=== PATIENT | female | born 1965 | race African-American/Black ===

== ENCOUNTER 2017-08-18 00:08 | Emergency (ER) | payer OTHER ==
[2017-08-18 00:22] VITALS: TEMP 97.8; BMI 25.7
--- NOTE | 2017-08-18 01:14 | PDOC ---
Attending Attestation - Resident Resident Name: Lev Mcfarland - ED Attending Attestation I have performed the following: I have examined & evaluated the patient, The case was reviewed & discussed with the resident, I agree w/resident's findings & plan - HPI HPI: 08/18/17 03:38 Pt choked on a sausage. Spit up some of it at home; drank warm water to push it eric; choked on that and spit up more sausage. [place] a FB in throat and came to the ER. Here she vomited the rest of the sausage out. - Physicial Exam PE: 08/18/17 05:13 Agree with resident exam. - Medical Decision Making 08/18/17 03:33 Patient Name: APRIL TEE THIS IS A PRELIMINARY REPORT FROM [facility] DATE OF SERVICE: 2017-08-18 02:15:47 IMAGES: [id number] EXAM: CT SOFT TISSUE NECK WITHOUT CONTRAST HISTORY: Choked on sausage COMPARISON: None. FINDINGS: Intraorbital and visualized intracranial contents are normal. Normal epiglottis and vocal cords. No parapharyngeal or retropharyngeal space edema. No esophageal or tracheal foreign bodies identified. No mass or abscess. Normal salivary glands and thyroid gland. Lungs are clear. There are moderate degenerative changes of the cervical spine. IMPRESSION: No acute abnormalities identified 08/18/17 05:11 Pt has swelling at the level of the eppiglottis. Images discussed with imaging sr technical sales consultant, they agree that perhaps there may be some swelling in the area. Pt will be signed out to the day team and ENT can be called to scope the patient. Labs pending. 08/18/17 06:40 Labs normal. Pt will be signed out to the day team.
--- NOTE | 2017-08-18 01:28 | PDOC ---
History of Present Illness - General Chief Complaint: Sore Throat Stated Complaint: THROAT PAIN Time Seen by Provider: 08/18/17 00:52 - History of Present Illness Initial Comments: 08/18/17 01:18 Pt is a 52 y/o F with PMH Asthma, NIDDM on metformin who presents to the ED approximately 2-3 hours after an episode in which she had food stuck in her throat. Pt states she was eating sausage when a piece became lodged in her throat. She vomited 2-3 times over a period of 5 min before expelling the pieces. During the episode, pt states she felt like her throat was closing and she had trouble breathing. Pt has had recurrent bouts of NBNB vomiting (3-4 times) since the episode. Pt is able to swallow and is breathing freely at this time, though she has a persistent feeling of something in her throat. Past History - Past Medical History Allergies/Adverse Reactions: Allergies Allergy/AdvReac Type Severity Reaction Status Date / Time Penicillins Allergy Verified 08/18/17 01:23 - Suicide/Smoking/Psychosocial Hx Smoking History: Unknown if ever smoked Information on smoking cessation initiated: No Hx Alcohol Use: No Drug/Substance Use Hx: No Review of Systems - Review of Systems Able to Perform ROS?: Yes Is the patient limited Yi proficient: No Constitutional: Yes: Symptoms Reported. No: Chills, Diaphoresis, Fever HEENTM: Yes: Symptoms Reported. No: Eye Pain, Blurred Vision Respiratory: Yes: Symptoms reported. No: Cough, Orthopnea, Shortness of Breath Cardiac (ROS): Yes: Symptoms Reported. No: Chest Pain, Edema, Chest Tightness ABD/GI: Yes: Symptoms Reported, See HPI, Difficulty Swallowing, Nausea, Vomiting. No: Indigestion : Yes: Symptoms Reported. No: Burning, Dysuria, Discharge Musculoskeletal: Yes: Symptoms Reported. No: Back Pain *Physical Exam - Vital Signs Last Vital Signs Temp Pulse Resp BP Pulse Ox 97.8 F 82 16 145/71 100 08/18/17 00:13 08/18/17 00:13 08/18/17 00:13 08/18/17 00:13 08/18/17 00:13 - Physical Exam General Appearance: Yes: Nourished, Appropriately Dressed. No: Apparent Distress HEENT: positive: EOMI, JOE, Muffled/Hoarse voice. negative: Normal ENT Inspection, Pharynx Normal (swollen pharynx. Uvula resting on tongue) Neck: positive: Supple. negative: Tender, Stridor Respiratory/Chest: positive: Normal Breath Sounds. negative: Chest Tender, Lungs Clear Cardiovascular: positive: Regular Rhythm, Regular Rate, S1, S2 Vascular Pulses: Dorsalis-Pedis (R): 2+, Doralis-Pedis (L): 2+ Gastrointestinal/Abdominal: positive: Normal Bowel Sounds, Flat, Soft. negative : Tender, Organomegaly Musculoskeletal: positive: Normal Inspection. negative: CVA Tenderness Neurologic: positive: carbon electrodes supervisor II-XII NML intact, Fully Oriented, Alert, Normal Mood/ Affect ED Treatment Course - LABORATORY CBC & Chemistry Diagram: 08/18/17 03:40 08/18/17 03:40 Medical Decision Making - Medical Decision Making 08/18/17 01:34 Pt is a 52 y/o F w/ PMH Asthma, NIDDM who present to ED several hours after an episode in which she had soft food stuck in her throat persistently for 5 min. Pt was able to expel the food, but has residual symptoms of altered voice, vomiting, and throat swelling. Plan -CT neck soft tissue 08/18/17 04:05 CT appears abnormal. Possible tracheal narrowing, ?gas in soft tissue. Possible infectious etiolgoy. Will confirm with radiology. Pt may need ENT consult. 08/18/17 05:39 Pt sleeping comfortably 08/18/17 06:41 Labs unremarkable. *DC/Admit/Observation/Transfer - Discharge Dispostion Condition at time of disposition: Guarded - Referrals - Patient Instructions - Post Discharge Activity
[2017-08-18 04:03] LABS: BASO % 0.7 % (0-2.0); HEMOGLOBIN 13.4 GM/dL (10.7-15.3); MCH 29.5 pg (25.7-33.7); MCHC 33.4 g/dl (32.0-36.0); MEAN CELL VOLUME 88.4 fl (80-96); MEAN PLT VOLUME 9.4 fl (7.5-11.1); MONO % 6.2 % (3.8-10.2); NEUT % 53.1 % (42.8-82.8); PLATELET COUNT 233 K/MM3 (134-434); RBC 4.52 M/mm3 (3.60-5.2); RDW 12.3 % (11.6-15.6); WHITE BLOOD COUNT 9.3 K/mm3 (4.0-10.0)
[2017-08-18 05:04] LABS: BLOOD UREA NITROGEN 14 mg/dL (7-18); CREATININE 0.8 mg/dL (0.55-1.02); GLUCOSE,RANDOM 237 mg/dL (74-106); SODIUM 137 mmol/L (136-145)
[2017-08-18 05:05] LABS: ALBUMIN 3.4 g/dl (3.4-5.0); ALK PHOS 94 U/L (45-117); ANION GAP 8 (8-16); BILIRUBIN,TOTAL 0.5 mg/dL (0.2-1.0); CALCIUM 8.6 mg/dL (8.5-10.1); CHLORIDE 99 mmol/L (98-107); CO2 30 mmol/L (21-32); POTASSIUM 3.8 mmol/L (3.5-5.1); SGOT/AST 14 U/L (15-37); SGPT/ALT 18 U/L (12-78)
--- NOTE | 2017-08-18 09:23 | HP ---
CHIEF COMPLAINT: dysphagia HISTORY OF PRESENT ILLNESS: 52F with hx of asthma and NIDDM (on metformin and glyburide), who presents to the ED approximately 2-3 hours after an episode in which she had food stuck in her throat. Pt states she was eating sausage when a piece became lodged in her throat. She vomited 2-3 times over a period of 5 min before expelling the pieces. During the episode, pt states she felt like her throat was closing and she had trouble breathing. Pt has had recurrent bouts of NBNB vomiting (3-4 times) since the episode, which ejected the remainder of the sausage. Pt is able to swallow and is breathing freely at this time, though she has a persistent feeling of something in her throat. She denies any other episodes of dysphagia before, ever having this type of sausage before, any other food allergies, headache, chest pain, abdominal pain, diarrhea, constipation, and dysuria. ER course was notable for: (1) CT findings Recent Travel: denies PAST MEDICAL HISTORY: asthma and NIDDM PAST SURGICAL HISTORY: denies Social History: Smoking: denies Alcohol: denies Drugs: denies Family History: non-contributory Allergies Penicillins Allergy (Verified 08/18/17 01:23) HOME MEDICATIONS: Home Medications Medication Instructions Recorded Aspirin [ASA -] 81 mg PO DAILY 08/18/17 Glyburide 5 mg PO QID 08/18/17 Metformin HCl [Metformin HCl ER] 1,000 mg PO BID 08/18/17 REVIEW OF SYSTEMS CONSTITUTIONAL: Absent: fever, chills, diaphoresis, generalized weakness, malaise, loss of appetite, weight change HEENT: Absent: rhinorrhea, nasal congestion, mouth swelling, ear pain, eye pain, visual changes present: throat swelling, difficulty swallowing CARDIOVASCULAR: Absent: chest pain, syncope, palpitations, irregular heart rate, lightheadedness , peripheral edema RESPIRATORY: Absent: cough, dyspnea with exertion, orthopnea, wheezing, stridor, hemoptysis present: SOB GASTROINTESTINAL: Absent: abdominal pain, abdominal distension, diarrhea, constipation, melena, hematochezia present: nausea, emesis GENITOURINARY: Absent: dysuria, frequency, urgency, hesitancy, hematuria, flank pain, genital pain MUSCULOSKELETAL: Absent: myalgia, arthralgia, joint swelling, back pain, neck pain SKIN: Absent: rash, itching, pallor HEMATOLOGIC/IMMUNOLOGIC: Absent: easy bleeding, easy bruising, lymphadenopathy, frequent infections ENDOCRINE: Absent: unexplained weight gain, unexplained weight loss, heat intolerance, cold intolerance NEUROLOGIC: Absent: headache, focal weakness or paresthesias, dizziness, unsteady gait, seizure, mental status changes, bladder or bowel incontinence PSYCHIATRIC: Absent: anxiety, depression, suicidal or homicidal ideation, hallucinations. PHYSICAL EXAMINATION Vital Signs - 24 hr 08/18/17 08/18/17 00:08 00:13 Temperature 97.8 F Pulse Rate 82 Pulse Rate [ 98 H Left Radial] Respiratory 18 16 Rate Blood Pressure 145/71 Blood Pressure 136/84 [Left Arm] O2 Sat by Pulse 98 100 Oximetry (%) GENERAL: Awake, alert, and fully oriented, in no acute distress. HEENT: no pharyngeal erthema, no tongue, uvula or tonsillary swelling NECK: Normal range of motion, supple without lymphadenopathy, JVD, or masses. LUNGS: Breath sounds equal, clear to auscultation bilaterally. No wheezes, and no crackles. No accessory muscle use. HEART: Regular rate and rhythm, normal S1 and S2 without murmur, rub or gallop. ABDOMEN: Soft, nontender, not distended, normoactive bowel sounds, no guarding, no rebound, no masses. No hepatomegaly or splenomegaly. MUSCULOSKELETAL: Normal range of motion at all joints. No bony deformities or tenderness. No CVA tenderness. UPPER EXTREMITIES: 2+ pulses, warm, well-perfused. No cyanosis. No clubbing. No peripheral edema. LOWER EXTREMITIES: 2+ pulses, warm, well-perfused. No calf tenderness. No peripheral edema. NEUROLOGICAL: Cranial nerves II-XII intact. Normal speech. Normal gait. Laboratory Results - last 24 hr 08/18/17 08/18/17 03:40 03:40 WBC 9.3 RBC 4.52 Hgb 13.4 Hct 40.0 MCV 88.4 MCH 29.5 MCHC 33.4 RDW 12.3 Plt Count 233 MPV 9.4 Neutrophils % 53.1 Lymphocytes % 39.0 Monocytes % 6.2 Eosinophils % 1.0 Basophils % 0.7 Sodium 137 Potassium 3.8 Chloride 99 Carbon Dioxide 30 Anion Gap 8 BUN 14 Creatinine 0.8 Creat Clearance w eGFR > 60 Random Glucose 237 H Calcium 8.6 Total Bilirubin 0.5 AST 14 L ALT 18 Alkaline Phosphatase 94 Total Protein 7.0 Albumin 3.4 THIS IS A PRELIMINARY REPORT FROM [facility] NURSE DATE OF SERVICE: 2017-08-18 02:15:47 IMAGES: 294 EXAM: CT SOFT TISSUE NECK WITHOUT CONTRAST HISTORY: Choked on sausage COMPARISON: None. FINDINGS: Intraorbital and visualized intracranial contents are normal. Normal epiglottis and vocal cords. No parapharyngeal or retropharyngeal space edema. No esophageal or tracheal foreign bodies identified. No mass or abscess. Normal salivary glands and thyroid gland. Lungs are clear. There are moderate degenerative changes of the cervical spine. IMPRESSION: No acute abnormalities identified ASSESSMENT/PLAN: 52F with hx of asthma and NIDDM (on metformin and glyburide) who presents after acute episode of dysphagia after eating sausage accompanied by emesis and SOB. #dysphagia- likely 2/2 to eating too large of a piece of sausage -resolved after several episodes of emesis which ejected sausage out of mouth -per ED note, there is some concerning epiglottis swelling that was discussed with radiology -ENT consult, Dr. Naidu, f/u recs -NPO pending ENT recs -NS @ 100cc/hr #asthma- inactive -no current SOB or wheezing, satting well on RA #NIDDM -ISS -BGM TIDAC #FEN/ppx -NS @ 100cc/hr -electrolytes wnl -NPO for now -no GI ppx indicated -SCDs Case discussed with attending, Dr. Andrade. -Venkat Thornton MD PGY1 Visit type - Emergency Visit Emergency Visit: Yes Care time: The patient presented to the Emergency Department on the above date and was hospitalized for further evaluation of their emergent condition. - New Patient This patient is new to me today: Yes Date on this admission: 08/18/17 - Critical Care Critical Care patient: No
[2017-08-18 09:25] VITALS: BP 116/67; PULSE 84
[2017-08-18] MEDS ORDERED: SODIUM CHLORIDE 1,000 ML IV SCH (09:45)
--- NOTE | 2017-08-18 09:51 | PDOC ---
*Physical Exam - Vital Signs Last Vital Signs Temp Pulse Resp BP Pulse Ox 97.8 F 84 16 116/67 98 08/18/17 00:13 08/18/17 09:00 08/18/17 00:13 08/18/17 09:00 08/18/17 09:00 ED Treatment Course - LABORATORY CBC & Chemistry Diagram: 08/18/17 03:40 08/18/17 03:40 - ADDITIONAL ORDERS Additional order review: Laboratory Results 08/18/17 03:40 Sodium 137 Potassium 3.8 Chloride 99 Carbon Dioxide 30 Anion Gap 8 BUN 14 Creatinine 0.8 Creat Clearance w eGFR > 60 Random Glucose 237 H Calcium 8.6 Total Bilirubin 0.5 AST 14 L ALT 18 Alkaline Phosphatase 94 Total Protein 7.0 Albumin 3.4 08/18/17 03:40 RBC 4.52 MCV 88.4 MCHC 33.4 RDW 12.3 MPV 9.4 Neutrophils % 53.1 Lymphocytes % 39.0 Monocytes % 6.2 Eosinophils % 1.0 Basophils % 0.7 Medical Decision Making - Medical Decision Making 08/18/17 09:[address] tissue neck [address]: There may be minimal parapharyngeal space edema at and just above the level of the vocal cords. Intraorbital and visualized contents are normal. No esophageal or tracheal foreign foreign bodies identified. No mass or abscess. Normal salivary glands and thyroid gland. Lungs are clear. Moderate degenerative changes of the cervical spine. ENT chief operations officer consulted, patient can followed outpatient. 08/18/17 09:42 No apparent soft tissue air as was communicated at sign out. Patient comfortable , able to breathe, hungry, passed PO challenge. Will follow up with ENT outpatient. 08/18/17 09:51 08/18/17 09:59 Patient placed on ED obs short stay. *DC/Admit/Observation/Transfer Diagnosis at time of Disposition: Pharyngeal edema - Discharge Dispostion Disposition: HOME Condition at time of disposition: Guarded Admit: Yes - Referrals Referrals: Ian Naidu MD [Staff Physician] - - Patient Instructions Printed Discharge Instructions: DI for Oropharyngeal Dysphagia Additional Instructions: Follow up with ENT within next 2 days Come back to the Emergency Department for any new, concerning or worsening symptom like difficulty breathing, swallowing, fever, chest pain... - Post Discharge Activity Activity Comments: 08/18/17 10:02 Short STay
--- NOTE | 2017-08-18 10:00 | PN ---
Teaching Attending Note Name of Resident: Venkat Thornton ATTENDING PHYSICIAN STATEMENT I saw and evaluated the patient. I reviewed the resident's note and discussed the case with the resident. I agree with the resident's findings and plan as documented. SUBJECTIVE: Patient is feeling better, stated that she had a big piece of sausage that was stuck in her throat. Tried to drink water to push the sausage down her throat but instead she was throwing up. She decided to come to Ed.for further care. Patient was seen by ED.doctor ordered CT of the neck which was reported negative. ENT was called for the patient to be evaluated. As per ENT patient can go home and follow with the office on Saturday. Patient was discharged home from ED. by the ED. doctor after the discussion with radiologist and ENT doctor. OBJECTIVE: Vital Signs Temperature 97.8 F 08/18/17 00:13 Pulse Rate 84 08/18/17 09:00 Respiratory Rate 16 08/18/17 00:13 Blood Pressure 116/67 08/18/17 09:00 O2 Sat by Pulse Oximetry (%) 98 08/18/17 09:00 CBCD WBC 9.3 K/mm3 (4.0-10.0) 08/18/17 03:40 RBC 4.52 M/mm3 (3.60-5.2) 08/18/17 03:40 Hgb 13.4 GM/dL (10.7-15.3) 08/18/17 03:40 Hct 40.0 % (32.4-45.2) 08/18/17 03:40 MCV 88.4 fl (80-96) 08/18/17 03:40 MCHC 33.4 g/dl (32.0-36.0) 08/18/17 03:40 RDW 12.3 % (11.6-15.6) 08/18/17 03:40 Plt Count 233 K/MM3 (134-434) 08/18/17 03:40 MPV 9.4 fl (7.5-11.1) 08/18/17 03:40 CMP Sodium 137 mmol/L (136-145) 08/18/17 03:40 Potassium 3.8 mmol/L (3.5-5.1) 08/18/17 03:40 Chloride 99 mmol/L (98-107) 08/18/17 03:40 Carbon Dioxide 30 mmol/L (21-32) 08/18/17 03:40 Anion Gap 8 (8-16) 08/18/17 03:40 BUN 14 mg/dL (7-18) 08/18/17 03:40 Creatinine 0.8 mg/dL (0.55-1.02) 08/18/17 03:40 Creat Clearance w eGFR > 60 (>60) 08/18/17 03:40 Random Glucose 237 mg/dL (74-106) H 08/18/17 03:40 Calcium 8.6 mg/dL (8.5-10.1) 08/18/17 03:40 Total Bilirubin 0.5 mg/dL (0.2-1.0) 08/18/17 03:40 AST 14 U/L (15-37) L 08/18/17 03:40 ALT 18 U/L (12-78) 08/18/17 03:40 Alkaline Phosphatase 94 U/L (45-117) 08/18/17 03:40 Total Protein 7.0 g/dl (6.4-8.2) 08/18/17 03:40 Albumin 3.4 g/dl (3.4-5.0) 08/18/17 03:40 Home Medications Medication Instructions Recorded Aspirin [ASA -] 81 mg PO DAILY 08/18/17 Glyburide 5 mg PO QID 08/18/17 Metformin HCl [Metformin HCl ER] 1,000 mg PO BID 08/18/17 PE: Patient has no difficulty swallowing, No swelling of her throat is noted. rest of PE per resident's note. ASSESSMENT AND PLAN: Patient is comfortable , advaced the diet, patient tolerated the diet and was discharged home with follow up visit with ENT on Saturday the 2017. CT of the neck reviewed By Dr.Farid Mauro. Follow with ENT Dr.Tom Sosa on 08/19/2017
[2017-08-18] MEDS ORDERED: INSULIN SLIDING SCALE (NOVOLOG) 1 VIAL SQ SCH (11:00)
--- NOTE | 2017-08-18 13:48 | DS ---
Physical Exam: SUBJECTIVE: Patient seen and examined Pt is able to swallow and is breathing freely at this time, though she has a persistent feeling of something in her throat. She denies any other episodes of dysphagia before, ever having this type of sausage before, any other food allergies, headache, chest pain, abdominal pain, diarrhea, constipation, and dysuria. OBJECTIVE: Vital Signs Period Temp Pulse Resp BP Sys/Gtz Pulse Ox Last 24 Hr 97.8 F 82-98 16-18 116-145/67-84 98-100 PHYSICAL EXAM GENERAL: Awake, alert, and fully oriented, in no acute distress. HEENT: no pharyngeal erthema, no tongue, uvula or tonsillary swelling NECK: Normal range of motion, supple without lymphadenopathy, JVD, or masses. LUNGS: Breath sounds equal, clear to auscultation bilaterally. No wheezes, and no crackles. No accessory muscle use. HEART: Regular rate and rhythm, normal S1 and S2 without murmur, rub or gallop. ABDOMEN: Soft, nontender, not distended, normoactive bowel sounds, no guarding, no rebound, no masses. No hepatomegaly or splenomegaly. MUSCULOSKELETAL: Normal range of motion at all joints. No bony deformities or tenderness. No CVA tenderness. UPPER EXTREMITIES: 2+ pulses, warm, well-perfused. No cyanosis. No clubbing. No peripheral edema. LOWER EXTREMITIES: 2+ pulses, warm, well-perfused. No calf tenderness. No peripheral edema. NEUROLOGICAL: Cranial nerves II-XII intact. Normal speech. Normal gait. LABS Laboratory Results - last 24 hr 08/18/17 08/18/17 03:40 03:40 WBC 9.3 RBC 4.52 Hgb 13.4 Hct 40.0 MCV 88.4 MCH 29.5 MCHC 33.4 RDW 12.3 Plt Count 233 MPV 9.4 Neutrophils % 53.1 Lymphocytes % 39.0 Monocytes % 6.2 Eosinophils % 1.0 Basophils % 0.7 Sodium 137 Potassium 3.8 Chloride 99 Carbon Dioxide 30 Anion Gap 8 BUN 14 Creatinine 0.8 Creat Clearance w eGFR > 60 Random Glucose 237 H Calcium 8.6 Total Bilirubin 0.5 AST 14 L ALT 18 Alkaline Phosphatase 94 Total Protein 7.[address] scan of the neck without intravenous contrast: Contiguous axial scans were obtained followed by coronal and sagittal reconstruction images. No radiopaque foreign body is seen. The airway is patent and symmetric without narrowing. Parapharyngeal space is clear. There are a couple of air pockets are seen in the soft tissue along the right lateral wall at the level of the piriform sinus/supralaryngeal level. It is unclear whether this is air within the effaced right. Form sinus versus extraluminal air. The thyroid gland is within normal limits in size. No discrete mass lesion or enlarged lymph nodes are identified. Both submandibular and both parotid glands appear unremarkable. Included intracranial contents appear grossly unremarkable. Both orbits appear unremarkable. Included thoracic inlet appears unremarkable. Straightening of the cervical spine with moderate degenerative disc disease at C5-C6 level with right uncovertebral hypertrophy moderately narrowing the right foramen. Mild to moderate degenerative disc disease at C6- C7 level with mild bilateral uncovertebral hypertrophy Impression: No radiopaque foreign body is seen. There is no gross narrowing of the airway. There are a few air pockets in the right lateral supralaryngeal wall. It is unclear whether it represent air within the effaced right piriform sinus versus extraluminal air. Follow-up and ENT evaluation is needed. Mild air distention of the proximal esophagus, which is nonspecific. Correlate clinically for further evaluation. A preliminary report was forwarded by the [facility] service , IMAGING COMMUNICATIONS ADVISOR. HOSPITAL COURSE: Date of Admission:08/18/17 Date of Discharge: 08/18/17 52F with hx of asthma and NIDDM (on metformin and glyburide) who presents after acute episode of dysphagia after eating sausage accompanied by emesis and SOB. The dysphagia resolved after several episodes of emesis which ejected the sausage completely out of her throat. Given the CT findings, ENT was consulted who stated that this is not urgent, and pt can be seen as an outpatient in 2 days. Pt is hemodynamically stable, has no further subjective complaints, has a normal physical exam, and is ready for discharge home to f/ with ENT in 2 days. Case discussed with attending, Dr. Andrade. -Venkat Thornton MD PGY1 Minutes to complete discharge: 35 <Venkat Thornton - Last Filed: 08/18/17 13:49> Physical Exam: SUBJECTIVE: Patient seen and examined, agree with the resident's note <Nicolás Andrade - Last Filed: 08/19/17 13:17> Discharge Summary Reason For Visit: THROAT PAIN - Home Medications Comprehensive Discharge Medication List: Ambulatory Orders Aspirin [ASA -] 81 mg PO DAILY 08/18/17 Glyburide 5 mg PO QID 08/18/17 Metformin HCl [Metformin HCl ER] 1,000 mg PO BID 08/18/17 <Venkat Thornton - Last Filed: 08/18/17 13:49> - Home Medications Comprehensive Discharge Medication List: Ambulatory Orders Aspirin [ASA -] 81 mg PO DAILY 08/18/17 Glyburide 5 mg PO QID 08/18/17 Metformin HCl [Metformin HCl ER] 1,000 mg PO BID 08/18/17 <Nicolás Andrade - Last Filed: 08/19/17 13:17> Condition: Guarded - Instructions Diet, Activity, Other Instructions: Follow up with ENT within next 2 days Come back to the Emergency Department for any new, concerning or worsening symptom like difficulty breathing, swallowing, fever, chest pain... Referrals: Ian Naidu MD [Staff Physician] - Disposition: HOME This patient is new to me today: Yes Date on this admission: 08/18/17 Emergency Visit: Yes Care time: The patient presented to the Emergency Department on the above date and was hospitalized for further evaluation of their emergent condition. Critical Care patient: No - Discharge Referral Referred to [facility] No <Venkat Thornton - Last Filed: 08/18/17 13:49>
== END 2017-08-18 10:50 | disposition home or self-care (01) ==
LOC: JER 00:08
DX: R13.13 Dysphagia, pharyngeal phase (principal); R09.89 Other specified symptoms and signs involving the circulatory and respiratory systems; E11.9 Type 2 diabetes mellitus without complications; Z79.84 Long term (current) use of oral hypoglycemic drugs; Z87.09 Personal history of other diseases of the respiratory system
CPT/HCPCS: 36415; 70490-TC; 80053; 85025; 87040; 99282-25